=== PATIENT | female | born 1970 | race Caucasian/White ===

== ENCOUNTER 2017-06-16 08:30 | Emergency (ER) | payer SELFPAY ==
[2017-06-16 08:45] VITALS: BP 170/90
--- NOTE | 2017-06-16 09:40 | EDM.PDOC ---
ED HPI GENERAL MEDICAL PROBLEM - General Chief Complaint: General Stated Complaint: FLU/COUGH Time Seen by Provider: 06/16/17 09:25 Source of Information: Reports: Patient History Limitations: Reports: No Limitations - History of Present Illness INITIAL COMMENTS - FREE TEXT/NARRATIVE: States that for the last several days she has had some fever, body aches and chills. "My whole body hurts" Did not have influenza shot this year. has some of the same symptoms noted. No vomiting or diarrhea. Onset: Gradual Location: Reports: Generalized Quality: Reports: Ache Severity: Moderate Associated Symptoms: Reports: Cough, Fever/Chills, Weakness. Denies: Nausea/ Vomiting, Shortness of Breath Generalized Pain Score (Numeric/FACES): 7 - Related Data Allergies Allergy/AdvReac Type Severity Reaction Status Date / Time aspirin Allergy Shortness Verified 06/16/17 08:42 of Breath Home Meds: Home Meds Acetaminophen [Tylenol] 650 mg PO Q6HR PRN 07/10/15 [History] Past Medical History - Past Surgical History GI Surgical History: Reports: Appendectomy Female Surgical History: Reports: Section Musculoskeletal Surgical History: Reports: Arthroscopic Knee Social & Family History - Tobacco Use Smoking Status *Q: Current Every Day Smoker Years of Tobacco use: 20 Packs/Tins Daily: 1 - Caffeine Use Caffeine Use: Reports: Coffee - Recreational Drug Use Recreational Drug Use: No ED ROS GENERAL - Review of Systems Review Of Systems: See Below Constitutional: Reports: Fever, Chills, Weakness, Fatigue, Decreased Appetite HEENT: Reports: No Symptoms Respiratory: Reports: Cough Cardiovascular: Reports: No Symptoms GI/Abdominal: Denies: Constipation, Diarrhea, Vomiting Musculoskeletal: Reports: Back Pain, Muscle Pain Skin: Reports: No Symptoms Neurological: Reports: Headache. Denies: Confusion ED EXAM, GENERAL - Physical Exam Exam: See Below Exam Limited By: No Limitations General Appearance: Alert, WD/WN, Moderate Distress Ears: Normal External Exam, Normal Canal, Normal TMs Throat/Mouth: Normal Inspection, Normal Oropharynx, Normal Voice Head: Atraumatic, Normocephalic Neck: Normal Inspection, Supple, Non-Tender, Full Range of Motion Respiratory/Chest: No Respiratory Distress, Lungs Clear, Normal Breath Sounds, Chest Non-Tender Cardiovascular: Normal Peripheral Pulses, Regular Rate, Rhythm GI/Abdominal: Normal Bowel Sounds, Soft, Non-Tender, No Organomegaly Back Exam: Normal Inspection, Paraspinal Tenderness Extremities: Normal Inspection, Normal Range of Motion, Non-Tender, Normal Capillary Refill Neurological: Alert, Oriented Skin Exam: Warm, Dry, Intact, No Rash Course - Vital Signs Last Recorded V/S: Last Vital Signs Temp 99.0 F 06/16/17 08:35 Pulse 128 H 06/16/17 08:35 Resp 20 06/16/17 08:35 BP 170/90 H 06/16/17 08:35 Pulse Ox 95 06/16/17 08:35 Departure - Departure Time of Disposition: 09:38 Disposition: Home, Self-Care 01 Condition: Good Clinical Impression: Influenza A - Discharge Information Forms: ED Department Discharge Additional Instructions: Push fluids as much as possible Tylenol or advil every 2 hours as needed for body aches, fevers, chills Tamiflu 75 mg twice a day for 5 days. - Problem List & Annotations (1) Influenza A SNOMED Code(s): 105156777 Code(s): J10.1 - FLU DUE TO OTH IDENT INFLUENZA VIRUS W OTH RESP MANIFEST Status: Acute Current Visit: Yes - Problem List Review Problem List Initiated/Reviewed/Updated: Yes
== END 2017-06-16 09:50 | disposition home or self-care (01) ==
LOC: CC.ED 08:30
DX: J10.1 Influenza due to other identified influenza virus with other respiratory manifestations (principal); F17.210 Nicotine dependence, cigarettes, uncomplicated; Z88.6 Allergy status to analgesic agent
CPT/HCPCS: 87804; 99283

== ENCOUNTER 2024-03-13 21:34 | Emergency (ER) | payer MEDICARE, MEDICAID ==
[2024-03-13] MEDS: Sodium Chloride 0.9% 250 ML IV SCH (22:07)
[2024-03-13] MEDS: Potassium Chloride Riders 20 MEQ in Premix Bag 1 BAG IV ONE (22:10)
[2024-03-13] MEDS: Potassium Chloride 20 MEQ Tab.ER PO ONE (22:22)
[2024-03-13 23:23] VITALS: PULSE 97
[2024-03-14 00:33] VITALS: BP 135/89
== END 2024-03-14 00:10 | disposition home or self-care (01) ==
LOC: CC.ED 21:34
DX: E87.6 Hypokalemia (principal); I10 Essential (primary) hypertension; Z90.49 Acquired absence of other specified parts of digestive tract; Z88.6 Allergy status to analgesic agent
CPT/HCPCS: 93005; 96365; 96366; 99284-25; A9270-GY; J3480; J7050